=== PATIENT | female | born 1995 | race Caucasian/White ===

== ENCOUNTER 2021-04-22 21:00 | Inpatient (IN) | payer OTHER ==
[2021-04-22] MEDS ORDERED: LIDOCAINE 1% MPF 30 ML VIAL ONE (22:15)
[2021-04-22] MEDS ORDERED: OXYTOCIN/LR 20 UNIT/1,000 ML BAG IV ONE (22:16)
[2021-04-22] MEDS ORDERED: METHYLERGONOVINE 0.2MG/ML AMP IM ONE (22:16)
[2021-04-22] MEDS ORDERED: CARBOPROST TROME 250 MCG/ML IM ONE (22:16)
[2021-04-22] MEDS ORDERED: Oxycodone HCl/Acetaminophen 1 TAB TAB PO PRN (22:31)
[2021-04-22] MEDS ORDERED: DOCUSATE NA/SENNA CONC 1 TAB PO PRN (22:31)
[2021-04-22] MEDS ORDERED: IBUPROFEN 200 MG TAB PO PRN (22:31)
[2021-04-22] MEDS ORDERED: BISACODYL 10 MG RECTAL SUPP PR PRN (22:31)
[2021-04-22] MEDS ORDERED: ACETAMINOPHEN 500 MG TAB PO PRN (22:31)
[2021-04-22] MEDS ORDERED: DIPHENHYDRAMINE 25 MG TAB/CAP PO PRN (22:31)
[2021-04-22] MEDS ORDERED: PENICILLIN 5 MU in NA CHLORIDE 0.9% 100 ML IV ONE (22:59)
[2021-04-22] MEDS ORDERED: Ringers Lactate 1,000 ML IV PRN (22:59)
[2021-04-22] MEDS ORDERED: Ringers Lactate 1,000 ML IV SCH (23:00)
[2021-04-22] MEDS ORDERED: OXYTOCIN/LR 20 UNIT/1,000 ML BAG IV SCH ×2 (23:00→23:45)
[2021-04-22 23:32] VITALS: BMI 25.8
[2021-04-23 00:21] LABS: Absolute Lymphocytes (CBC) 2.8 K/uL (0.7-4.9); Basophils % 0.3 % (0-1.3); Hematocrit 32.5 % (36.0-45.0); Lymphocytes % 28.7 % (15.3-44.8); MPV 11.1 fL (7.6-11.3); RBC Red Blood Cell Count 3.98 M/uL (3.86-4.86)
--- NOTE | 2021-04-23 03:06 | DN ---
Surgeon: Troy Saab MD Caitlin Guzman is a 26-year-old, 2, para 1, at 38 weeks 1 day, followed antepartum in [facility], without complications. Rh negative. Received RhoGAM during the . Otherwise, no other problems reported. Moved to this area, said she would deliver in this area. Came in tonight in active rapidly advancing labor, received no analgesics, went from 3 to 6 in less than half an hour and then from 6 to complete in about 15 to 20 minutes. Second stage of about 10 minutes. Spontaneo us vaginal delivery of 6 pounds 9 ounces female. Apgars 9 and 9. No episiotomy. Very small first-d egree laceration, requiring 4 running locked stitches of 2-0 chromic under local infiltration. Schul tze delivery of the placenta was inspected and noted to be intact and normal. Less than 100 cc blood loss. The patient tolerated all procedures well. Final Diagnosis: Term intrauterine , 38 weeks 1 day, spontaneous labor, vaginal delivery. VINAYAK/MARIAN Voice ID: [id number] Report ID: [id number]
--- NOTE | 2021-04-23 03:12 | PREOPHP ---
Date of Admission: 04/22/2021 History: 26-year-old, 2, para 1, 38 weeks 1 day, followed antepartum in [facility], without problems, transferred to this area. Came in at 38 weeks and 1 day, in active labor. Family History: Noncontributory. Past Medical History: She is Rh negative, had RhoGAM during this . Strep test was unknown. The patient was offered penicillin and 5 million units was hung, but baby delivered within about 10 t o 15 minutes after the penicillin was started. Pediatrics notified. Allergies: NO ALLERGIES. Past Surgical History: No previous surgeries. Social History: Denies drug use. Admits that she was not taking her vitamins during the part of the . Laboratory Data: Laboratory values are pending at this point. Review of Systems: Noncontributory. Physical Examination: HEENT: Clear. Pupils equal, round, reactive to light and accommodation. Conjunctivae well perfused. No oral, lingual, or buccal lesions. Chest and Lung: Clear. Heart: Without murmurs, thrills, heaves, or rubs. Breasts: Not examined. Abdomen: Term size without any problems. Extremities: Clear without edema, cyanosis, or clubbing. Assessment And Plan: Essentially healthy female. Uncomplicated 38 weeks 1 day, spontaneou s, rapidly advancing labor. VINAYAK/MARIAN Voice ID: [id number]
[2021-04-23] MEDS: Oxycodone HCl/Acetaminophen 1 TAB TAB PO PRN ×2 (03:41→21:51)
[2021-04-23] MEDS ORDERED: Tdap (Diph,Pertuss(Acell),Tet Vac) 0.5 ML SYR IMVAC ONE (18:35)
[2021-04-23 22:00] LABS: RPR (Rapid Plasma Reagin) NON-REACT (NON-REACT)
[2021-04-24 06:53] VITALS: BP 125/81; TEMP 96.8
--- NOTE | 2021-04-26 13:04 | DS ---
Date of Discharge: 04/24/2021 History: A 26-year-old 2, para 1, followed antepartum in [place] without problems or com plications, came to our facility at 38 weeks 1 day, delivered rapidly of a 6 pounds 9 ounces female. Apgars 9 and 9. Local infiltration for repair of very small first-degree laceration requiring 3-4 s titches of 2-0 chromic. Schultze delivery of the placenta, which was inspected and noted to be intac t and less than 100 cc blood loss. The patient is Rh negative. She has received RhoGAM during pregn eve. Baby is also Rh negative, so she will not need RhoGAM. We have given penicillin prophylaxis a s her strep status was unknown, but the baby delivered much quicker than 1 hour after the penicillin was started. , she is afebrile, ambulating, voiding. Lochia is normal. She will be dismi ssed whenever the intramural director lets the baby go home. She is to call my office and make an appointme nt to come see me in 6 weeks for followup to report any temperature elevation of 100 degrees or great er, severe pain, heavy bleeding, or any other type of abnormalities. Requests no analgesics on dismi ssal. Flu shot, Tdap shot, and COVID immunizations discussed and encouraged. Final Diagnoses: Term intrauterine at 38 weeks 1 day, vaginal delivery. Immunizations off ered. Rh negative. Baby Rh negative as well. VINAYAK/MARIAN Voice ID: [id number] Report ID: [id number]
[2021-04-27 12:41] LABS: HBsAG Nonreactive (Nonreactive)
== END 2021-04-24 07:40 | disposition home or self-care (01) | DRG 807 ==
LOC: L&D 21:00 → 2ND-WC 21:45
PROVIDERS: ADMIT Specialist; ATTEND Specialist
PROC: 10E0XZZ Delivery of Products of Conception, External Approach (ICD-10-PCS; principal; 2021-04-22)
PROC: 10907ZC Drainage of Amniotic Fluid, Therapeutic from Products of Conception, Via Natural or Artificial Opening (ICD-10-PCS; 2021-04-22)
PROC: 0HQ9XZZ Repair Perineum Skin, External Approach (ICD-10-PCS; 2021-04-22)
DX: O70.0 First degree perineal laceration during delivery (principal); Z37.0 Single live birth; O26.893 Other specified pregnancy related conditions, third trimester; Z3A.38 38 weeks gestation of pregnancy; Z23 Encounter for immunization; Z67.91 Unspecified blood type, Rh negative; Z20.822 Contact with and (suspected) exposure to COVID-19
CPT/HCPCS: 36415; 85025; 85461; 86592; 86593; 86850; 86870; 86901; 87340; 90471; 90715; J2210; J2540; J2590; U0003

== ENCOUNTER 2021-05-17 18:39 | Inpatient (IN) | payer OTHER ==
[2021-05-17 20:00] LABS: Urine Blood 2+ (Negative); Urine Glucose Negative (Negative); Urine Protein 2+ (Negative); Urine Specific Gravity 1.025 (1.005-1.030); Urine pH 5.5 (5.0-7.0)
[2021-05-17 20:24] LABS: Urine Specific Gravity/Preg 1.025 (1.005-1.030)
[2021-05-17] MEDS ORDERED: NA CHLORIDE 0.9% 1,000 ML ONE (22:09)
[2021-05-17] MEDS ORDERED: CEFTRIAXONE 1000 MG/VIAL ONE (22:09)
[2021-05-17 22:19] LABS: Absolute Lymphocytes (CBC) 0.9 K/uL (0.7-4.9); Basophils % 0.3 % (0-1.3); Hematocrit 41.1 % (36.0-45.0); Lymphocytes % 6.7 % (15.3-44.8); MPV 10.9 fL (7.6-11.3); RBC Red Blood Cell Count 4.83 M/uL (3.86-4.86)
[2021-05-17 22:22] LABS: Potassium 3.2 mmol/L (3.5-5.1)
[2021-05-17 23:38] LABS: Anisocytosis 1+; Blood Morphology Comment NOTED (NOT SEEN); Platelet Estimate ADEQ
--- NOTE | 2021-05-17 23:49 | EDPHYS ---
Physician Documentation [facility] Name: Caitlin Guzman Age: 26 yrs Sex: Female : 1995 Arrival Date: 05/17/2021 Time: 18:44 Bed 19 Private MD: ED Physician Robel Ibrahim HPI: 05/17 22:27 This 26 yrs old Female presents to ER via Ambulatory with complaints of Kidney Pain. jr8 22:27 Modifying factors: The symptoms are alleviated by nothing. the symptoms are aggravated jr8 by nothing. Severity of pain: At its worst the pain was moderate in the emergency department the pain is unchanged. The patient has not experienced similar symptoms in the past. The patient has not recently seen a physician. This is a 26-year-old female with no past medical history that started with urinary symptoms which has now progressed to right-sided flank pain and fever since yesterday.. 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 - Social history:: Smoking status: Patient denies any tobacco usage or history of. Patient/guardian denies using alcohol, street drugs. ROS: 22:27 Eyes: Negative for injury, pain, redness, and discharge, ENT: Negative for injury, jr8 pain, and discharge, Neck: Negative for injury, pain, and swelling, Cardiovascular: Negative for chest pain, palpitations, and edema, Respiratory: Negative for shortness of breath, cough, wheezing, and pleuritic chest pain, Abdomen/GI: Negative for abdominal pain, nausea, vomiting, diarrhea, and constipation, MS/Extremity: Negative for injury and deformity, Skin: Negative for injury, rash, and discoloration, Neuro: Negative for headache, weakness, numbness, tingling, and seizure. 22:27 Back: Positive for flank pain, on the right. 22:27 : Positive for urinary symptoms. Exam: 22:27 Constitutional: This is a well developed, well nourished patient who is awake, alert, jr8 and in no acute distress. Cardiovascular: Regular rate and rhythm with a normal S1 and S2. No gallops, murmurs, or rubs. Normal PMI, no JVD. No pulse deficits. Respiratory: Lungs have equal breath sounds bilaterally, clear to auscultation and percussion. No rales, rhonchi or wheezes noted. No increased work of breathing, no retractions or nasal flaring. Abdomen/GI: Soft, non-tender, with normal bowel sounds. No distension or tympany. No guarding or rebound. No evidence of tenderness throughout. Skin: Warm, dry with normal turgor. Normal color with no rashes, no lesions, and no evidence of cellulitis. MS/ Extremity: Pulses equal, no cyanosis. Neurovascular intact. Full, normal range of motion. Neuro: Awake and alert, GCS 15, oriented to person, place, time, and situation. Cranial nerves II-XII grossly intact. Motor strength 5/5 in all extremities. Sensory grossly intact. Cerebellar exam normal. Normal gait. 22:27 Back: pain, is absent, ROM is normal, normal spinal alignment noted, CVA tenderness, that is mild, is noted on the right. Vital Signs: 19:45 BP 112 / 70; Pulse 101; Resp 19; Temp 98.2(O); Pulse Ox 100% ; Weight 63.5 kg; Height 5 ld1 ft. 6 in. (167.64 cm); Pain 7/10; 21:49 BP 117 / 66; Pulse 86; Resp 13; Pulse Ox 99% on R/A; ds4 22:15 BP 100 / 64; Pulse 73; Resp 16 S; Pulse Ox 100% on R/A; bb 11/ 01:10 BP 121 / 81; Pulse 102; Resp 18 S; Temp 99.4(O); Pulse Ox 100% on R/A; bb 07:45 BP 113 / 64; Pulse 106; Resp 18; Pulse Ox 99% ; sl2 08:45 BP 119 / 65; Pulse 88; Resp 18; Temp 98.4; Pulse Ox 99% ; sl2 09:30 BP 104 / 46; Pulse 98; Resp 18; Temp 98.4; Pulse Ox 100% ; sl2 10:50 BP 98 / 62; Pulse 81; Resp 18; Temp 98.5; Pulse Ox 99% on R/A; sl2 05/17 19:45 Body Mass Index 22.60 (63.50 kg, 167.64 cm) ld1 MDM: 05/17 21:29 Patient medically screened. jr 23:47 Data reviewed: vital signs, nurses notes, lab test result(s), radiologic studies, CT jr8 scan. Data interpreted: Pulse oximetry: on room air is 100 %. Interpretation: normal. Counseling: I had a detailed discussion with the patient and/or guardian regarding: the historical points, exam findings, and any diagnostic results supporting the discharge/admit diagnosis, lab results, radiology results, the need for further work-up and treatment in the hospital. ED course: Dr. Chappell consulted and will see patient tomorrow. Admitted to Dr. Sullivan. 05/17 20:00 Order name: Urine Dipstick-Ancillary; Complete Time: 21:29 [facility] 05/17 20:01 Order name: Urine --Ancillary (enter results); Complete Time: 21:29 [facility] 05/17 20:02 Order name: Urine Culture [facility] 05/17 21:46 Order name: Basic Metabolic Panel [facility] 05/17 21:46 Order name: CBC with Diff [facility] 05/17 21:47 Order name: Basic Metabolic Panel; Complete Time: 22:29 [facility] 05/17 21:47 Order name: CBC with Automated Diff; Complete Time: 23:39 [facility] 05/17 22:30 Order name: Manual Differential; Complete Time: 23:39 [facility] 05/17 23:39 Order name: Blood Culture Adult (2) [facility] 05/17 23:40 Order name: Blood Culture [facility] 05/18 00:08 Order name: COVID-19 SARS RT PCR (Document "Date of Onset" if Symptomatic); Complete [facility] Time: 01:46 05/18 01:46 Order name: CBC with Automated Diff; Complete Time: 01:46 [facility] 05/18 02:01 Order name: Comprehensive Metabolic Panel; Complete Time: 02:18 [facility] 05/18 02:44 Order name: Procalcitonin; Complete Time: 20:11 [facility] 05/17 21:46 Order name: IV Saline Lock; Complete Time: 21:46 [facility] 05/17 21:46 Order name: Labs collected and sent; Complete Time: 21:46 [facility] 05/17 21:46 Order name: CT Abd/Pelvis - IV Contrast Only; Complete Time: 20:11 jr8 05/18 09:41 Order name: Potassium; Complete Time: 20:11 EDMS Administered Medications: 22:15 Drug: NS 0.9% 1000 ml Route: IV; Rate: 1000 ml; Site: right antecubital; bb 23:15 Follow up: IV Status: Completed infusion; IV Intake: 1000ml bb 22:15 Drug: Rocephin (cefTRIAXone) 1 grams Route: IV; Rate: calculated rate; Site: right bb antecubital; 22:20 Follow up: IV Status: Completed infusion; IV Intake: 10ml 05/18 00:34 Drug: Potassium Chloride 40 mEq Route: PO; bb 01:11 Follow up: Response: No adverse reaction bb 02:04 Drug: morphine 2 mg Route: IVP; Site: right antecubital; bb Disposition: 05/19 09:19 Co-signature as Attending Physician, Robel Ibrahim MD I agree with the assessment and alison plan of care. Disposition Summary: 05/17/21 23:48 Hospitalization Ordered Hospitalization Status: Inpatient Admission 8 Provider: John Sullivan Condition: Stable jr8 Problem: new jr8 Symptoms: have improved jr8 Bed/Room Type: Standard [facility] Location: Telemetry/MedSurg (Inpatient)(05/18/21 07:33) Room Assignment: [facility](05/18/21 07:33) Diagnosis - Hydronephrosis with renal and ureteral calculous obstruction jr8 - Tubulo-interstitial nephritis, not specified as acute or chronic jr8 Forms: - Medication Reconciliation Form jr8 - SBAR form jr8 Signatures: Dispatcher [employer] EDMS Abril Zuleta Martha, RN RN mw Anderson, Corey, MD MD cha Ballard, Brenda, RN RN bb Roszak, Josh, PA PA [facility] Florina Vasquez RN RN ld1 Corrections: (The following items were deleted from the chart) 05/18 00:03 05/17 23:48 Telemetry/MedSurg (Inpatient) [facility] 05/18 00:03 05/17 23:48 [facility] 05/18 07:33 00:03 [facility] ER HOLD [facility] 07:33 00:03 ERHOLD- mw bd
--- NOTE | 2021-05-17 23:49 | ER ---
Nurse's Notes [facility] Name: Caitlin Guzman Age: 26 yrs Sex: Female : 1995 Arrival Date: 05/17/2021 Time: 18:44 Bed 19 Private MD: Diagnosis: Hydronephrosis with renal and ureteral calculous obstruction;Tubulo-interstitial nephritis, not specified as acute or chronic Presentation: 05/17 19:45 Chief complaint: Patient states: Right sided flank pain X 2 days. Last night I began ld1 running a 100 fever, today it was 103. I am getting uncontrollable chills, and vomiting. Coronavirus screen: Client presents with at least one sign or symptom that may indicate coronavirus-19. Standard/surgical mask placed on the client. Ebola Screen: No symptoms or risks identified at this time. Initial Sepsis Screen: Does the patient meet any 2 criteria? No. Patient's initial sepsis screen is negative. Does the patient have a suspected source of infection? No. Patient's initial sepsis screen is negative. Risk Assessment: Do you want to hurt yourself or someone else? Patient reports no desire to harm self or others. Onset of symptoms was May 17, 2021 at 19:47. 19:45 Method Of Arrival: Ambulatory ld1 19:45 Acuity: LUC 3 ld1 Triage Assessment: 19:47 General: Appears in no apparent distress. comfortable, Behavior is calm, cooperative, ld1 appropriate for age. Pain: Complains of pain in right low back Pain does not radiate. Pain currently is 8 out of 10 on a pain scale. Quality of pain is described as sharp, shooting, Pain began suddenly, Is continuous. EENT: No signs and/or symptoms were reported regarding the EENT system. Neuro: Level of Consciousness is awake, alert, obeys commands, Oriented to person, place, time, situation, Appropriate for age. Cardiovascular: Capillary refill < 3 seconds Patient's skin is warm and dry. Respiratory: Airway is patent Respiratory effort is even, unlabored, Respiratory pattern is regular, symmetrical. GI: Abdomen is flat, non-distended. : No signs and/or symptoms were reported regarding the genitourinary system. Derm: No signs and/or symptoms reported regarding the dermatologic system. Musculoskeletal: Reports pain in right low back. 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 - Social history:: Smoking status: Patient denies any tobacco usage or history of. Patient/guardian denies using alcohol, street drugs. Screenin:15 Abuse screen: Denies threats or abuse. Nutritional screening: No deficits noted. bb Tuberculosis screening: No symptoms or risk factors identified. Fall Risk None identified. Assessment: 22:32 General: Appears in no apparent distress. slender, Behavior is calm, cooperative. Pain: bb Complains of pain in right low back. Neuro: Level of Consciousness is awake, alert, obeys commands, Oriented to person, place, time, situation. Cardiovascular: Capillary refill < 3 seconds Patient's skin is warm and dry. Respiratory: Airway is patent Respiratory effort is even, unlabored, Respiratory pattern is regular. GI: Abdomen is non-distended. Derm: Skin is pink, warm \T\ dry. Musculoskeletal: Circulation, motion, and sensation intact. Reports pain in right low back. 23:30 Reassessment: Patient is alert, oriented x 3, equal unlabored respirations, skin bb warm/dry/pink. awaiting diagnostic results. 05/18 01:00 Reassessment: Using cell phone; voices no complaints. cc4 02:04 Reassessment: Patient appears in no apparent distress at this time. Pain: Complains of cc4 pain in right flank Pain currently is 8 out of 10 on a pain scale. Quality of pain is described as sharp, Morphine 2 mg given slow IVP; IV NS patent infusing right AC \T\ 150ml/hr/pump with no s/sx's of infiltration noted. Vital Signs: 05/17 19:45 BP 112 / 70; Pulse 101; Resp 19; Temp 98.2(O); Pulse Ox 100% ; Weight 63.5 kg; Height 5 ld1 ft. 6 in. (167.64 cm); Pain 7/10; 21:49 BP 117 / 66; Pulse 86; Resp 13; Pulse Ox 99% on R/A; ds4 22:15 BP 100 / 64; Pulse 73; Resp 16 S; Pulse Ox 100% on R/A; bb 05/18 01:10 BP 121 / 81; Pulse 102; Resp 18 S; Temp 99.4(O); Pulse Ox 100% on R/A; bb 07:45 BP 113 / 64; Pulse 106; Resp 18; Pulse Ox 99% ; sl2 08:45 BP 119 / 65; Pulse 88; Resp 18; Temp 98.4; Pulse Ox 99% ; sl2 09:30 BP 104 / 46; Pulse 98; Resp 18; Temp 98.4; Pulse Ox 100% ; sl2 10:50 BP 98 / 62; Pulse 81; Resp 18; Temp 98.5; Pulse Ox 99% on R/A; sl2 05/17 19:45 Body Mass Index 22.60 (63.50 kg, 167.64 cm) ld1 ED Course: 05/17 18:44 Patient arrived in ED. ds1 19:47 Triage completed. ld1 19:47 Arm band placed on right wrist. ld1 21:29 Jona Whitney PA is PHCP. jr8 21:29 Robel Ibrahim MD is Attending Physician. jr8 21:46 Inserted saline lock: 20 gauge in right antecubital area, using aseptic technique. ds4 Blood collected. 22:15 Patient has correct armband on for positive identification. Bed in low position. Call bb light in reach. 22:29 Samia Gaytan, YARELI is Primary Nurse. bb 22:43 CT Abd/Pelvis - IV Contrast Only In Process Unspecified. EDMS 23:47 John Sullivan DO is Hospitalizing Provider. jr8 05/18 00:35 CBC with Diff Sent. bb 00:35 Basic Metabolic Panel Sent. bb 01:11 No provider procedures requiring assistance completed. Patient admitted, IV remains in bb place. 06:54 Blood Culture Adult (2) Sent. cc4 Administered Medications: 05/17 22:15 Drug: NS 0.9% 1000 ml Route: IV; Rate: 1000 ml; Site: right antecubital; bb 23:15 Follow up: IV Status: Completed infusion; IV Intake: 1000ml bb 22:15 Drug: Rocephin (cefTRIAXone) 1 grams Route: IV; Rate: calculated rate; Site: right bb antecubital; 22:20 Follow up: IV Status: Completed infusion; IV Intake: 10ml bb 05/18 00:34 Drug: Potassium Chloride 40 mEq Route: PO; bb 01:11 Follow up: Response: No adverse reaction bb 02:04 Drug: morphine 2 mg Route: IVP; Site: right antecubital; bb Intake: 05/17 22:20 IV: 10ml; Total: 10ml. bb 23:15 IV: 1000ml; Total: 1010ml. bb Outcome: 23:48 Decision to Hospitalize by Provider. jr8 05/18 01:11 Admitted to Med/surg room ED Hold 19, Report called to Theresa DOWNS bb Condition: stable Instructed on the need for admit. 01:12 Admitted to ER Hold. [facility]. bb 11:20 Patient left the ED. sl2 Signatures: [facility] Suzy Stevens ds1 Samia Gaytan RN RN bb Jnoa Whitney PA PA jr8 Hubert Fuentes ds4 Florina Vasquez RN RN ld1 Theresa Manuel, RN RN cc4 Carine Goodwin RN RN sl2 Corrections: (The following items were deleted from the chart) 05/17 19:49 19:45 Resp 19bpm; 63.5 kg; Height 5 ft. 6 in.; BMI: 22.6; Pain 7/10; ld1 ld1
[2021-05-18] MEDS ORDERED: POTASSIUM CL SA 10 MEQ TAB PO ONE ×3 (00:18→07:48)
--- NOTE | 2021-05-18 00:36 | P.HP ---
Certification for Inpatient Patient admitted to: Inpatient With expected LOS: >2 Midnights Patient will require the following post-hospital care: None Practitioner: I am a practitioner with admitting privileges, knowledge of patient current condition, hospital course, and medical plan of care. Services: Services provided to patient in accordance with Admission requirements found in Title 42 Section 412.3 of the Code of Federal Regulations Patient History Date of Service: 05/18/21 Primary Care Provider: None Reason for admission: Pyelonephritis, ureteral calculus History of Present Illness: 26-year-old otherwise healthy female came to the emergency department with right flank pain and fever. Patient reports that pain began on Monday, noted fever yesterday. Patient was evaluated in the emergency department labs were significant for white blood cell count 12.9 with left shift and significant bandemia potassium 3.2 GFR 81 urine grossly positive for UTI CT abdomen pelvis with IV contrast demonstrated bilateral nephrolithiasis with a mildly obstructing 3 mm distal right ureteral calculus with possibility of pyelonephritis in the right kidney. Case was discussed with urology by ED provider who will consult for admission. Patient given IV Rocephin. Patient is breast-feeding. Allergies No Known Allergies Allergy (Verified 04/19/21 14:09) Home Medications: NK [No Home Meds] 04/19/21 - Past Medical/Surgical History -: None -: None Psychosocial/ Personal History: Patient lives at home with her family - Family History Family History: Reviewed- Non-Contributory - Social History Smoking Status: Never smoker Alcohol use: No CD- Drugs: No Caffeine use: No Place of Residence: Home Review of Systems 10-point ROS is otherwise unremarkable General: Fever, Chills, Weakness, Malaise Gastrointestinal: Other (Flank/back pain) Genitourinary: Dysuria Physical Examination - Physical Exam General: Alert, In no apparent distress, Oriented x3 HEENT: Atraumatic, PERRLA, Mucous membr. moist/pink, EOMI, Sclerae nonicteric Neck: Supple, 2+ carotid pulse no bruit, No LAD, Without JVD or thyroid abnormality Respiratory: Clear to auscultation bilaterally, Normal air movement Cardiovascular: Regular rate/rhythm, Normal S1 S2 Gastrointestinal: Normal bowel sounds, No tenderness Musculoskeletal: No tenderness Integumentary: No rashes Neurological: Normal gait, Normal speech, Normal strength at 5/5 x4 extr, Normal tone, Normal affect Lymphatics: No axilla or inguinal lymphadenopathy Urinary: Other (Right flank tenderness/CVA tenderness) - Studies Laboratory Data (last 24 hrs) 05/17/21 21:44: WBC 12.90 H, Hgb 12.8, Hct 41.1, Plt Count 254 05/17/21 21:44: Sodium 141, Potassium 3.2 L, BUN 13, Creatinine 0.84, Glucose 95 Assessment and Plan - Plan Assessment: UTI, right-sided pyelonephritis with partial obstructing 3 mm distal right ureteral calculus Breast-feeding Plan: UTI, right-sided pyelonephritis with partial obstructing 3 mm distal right ureteral calculus: Continue with IV fluids, IV antibiotics, urology consulted, n.p.o. at this time in case of need for surgical intervention in the morning. As needed pain medications. Breast-feeding: Patient is breast-feeding instructed to pump and dump for the time being. DVT PPX: SCDs Code status: Full code Discharge Plan: Home Plan to discharge in: 48 Hours - Advance Directives Does patient have a Living Will: No Does patient have a Durable POA for Healthcare: No - Code Status/Comfort Care Code Status Assessed: Yes (FC) Critical Care: No Time Spent Managing Pts Care (In Minutes): 55
[2021-05-18] MEDS ORDERED: ACETAMINOPHEN 500 MG TAB PO PRN (01:13)
[2021-05-18] MEDS: NA CHLORIDE 0.9% 1,000 ML IV SCH ×4 (01:13→20:19)
[2021-05-18] MEDS ORDERED: MORPHINE 2 MG/ML SYR IV PRN (01:13)
[2021-05-18] MEDS ORDERED: ONDANSETRON 4 MG/2 ML VIAL IV PRN (01:13)
[2021-05-18] MEDS ORDERED: NA CHLORIDE 0.9% 1,000 ML ONE ×2 (01:33→09:40)
[2021-05-18] MEDS ORDERED: ONDANSETRON 4 MG/2 ML VIAL ONE ×2 (01:33→12:16)
[2021-05-18 01:44] LABS: Absolute Lymphocytes (CBC) 1.2 K/uL (0.7-4.9); Basophils % 0.2 % (0-1.3); Hematocrit 42.3 % (36.0-45.0); Lymphocytes % 10.7 % (15.3-44.8); RBC Red Blood Cell Count 4.97 M/uL (3.86-4.86)
[2021-05-18] MEDS ORDERED: MORPHINE 2 MG/ML SYR ONE (02:00)
[2021-05-18 02:01] LABS: Albumin 3.3 g/dL (3.4-5.0); Bilirubin Total 0.9 mg/dL (0.2-1.0); Potassium 3.2 mmol/L (3.5-5.1); Protein, Total 7.8 g/dL (6.4-8.2)
--- NOTE | 2021-05-18 06:06 | P.PN ---
Subjective Date of Service: 05/18/21 Primary Care Provider: None Chief Complaint: Pyelonephritis, ureteral calculus Subjective: Improving, Other (Right flank pain improved.) Physical Examination - Vital Signs Temperature: 99.6 F Blood Pressure: 108/59 Pulse: 108 Respirations: 18 Pulse Ox (%): 98 - Studies Laboratory Data (last 24 hrs) 05/17/21 21:44: WBC 12.90 H, Hgb 12.8, Hct 41.1, Plt Count 254 05/17/21 21:44: Sodium 141, Potassium 3.2 L, BUN 13, Creatinine 0.84, Glucose 95 Assessment & Plan Discharge Plan: Home Plan to discharge in: 48 Hours Physician Review Additional Text: COVID: negative CT scan: Bilateral nephrolithiasis with mildly obstructing distal 3 mm right renal calculus and pyelonephritis Physical exam: General: Alert, In no apparent distress, Oriented x3 HEENT: Neck supple Respiratory: Clear to auscultation bilaterally, Normal air movement Cardiovascular: Regular rate/rhythm, Normal S1 S2 Gastrointestinal: Normal bowel sounds, tenderness to the right flank improved. Musculoskeletal: No tenderness Integumentary: No rashes Neurological: Normal gait, Normal speech, Normal strength at 5/5 x4 extr, Normal tone, Normal affect Lymphatics: No axilla or inguinal lymphadenopathy Impression: Acute right pyelonephritis with partial obstructing 3 mm distal right ureteral calculus and bilateral nephrolithiasis Breast-feeding Plan: Acute right pyelonephritis with partial obstructing 3 mm distal right ureteral calculus and bilateral nephrolithiasis: Patient doing better this morning. Continue IV fluids and IV antibiotic therapyRocephin. Patient currently n.p.o. for possible urological intervention. Urology has been consulted. Await recommendation. If no intervention required will advance diet. Will provide medication for pain. Encourage ambulation. Provide incentive spirometer. Anticipate improvement over the next 48 hours.. Breast-feeding: Patient is about 4 weeks post . Patient will continue to breast-feed and dump during the course of her stay. DVT PPX: SCDs Code status: Full code Discharge Plan: Home at discharge Time Spent Managing Pts Care (In Minutes): 55
[2021-05-18] MEDS ORDERED: TRAMADOL HCL 50 MG TAB PO PRN (06:37)
[2021-05-18] MEDS ORDERED: IBUPROFEN 400 MG TAB PO PRN (06:37)
[2021-05-18] MEDS ORDERED: HYDROCODONE/APAP 7.5/325 MG TAB PO PRN (06:38)
[2021-05-18] MEDS ORDERED: HYDROCODONE/APAP 7.5/325 MG TAB ONE (07:21)
[2021-05-18 07:27] VITALS: BMI 22.4
[2021-05-18] MEDS ORDERED: CEFTRIAXONE 1000 MG/VIAL ONE (08:08)
[2021-05-18] MEDS: CEFTRIAXONE 1,000 MG in NA CHLORIDE 0.9% 50 ML IVPB SCH (08:20)
--- NOTE | 2021-05-18 10:42 | RAD REPORT ---
EXAM DESCRIPTION: CT - Abdomen Pelvis W Contrast - 05/18/2021 6:15 am CLINICAL HISTORY: Flank pain;Fever COMPARISON: None. 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 FINDINGS: Lower lungs are clear. Abdomen: The liver is normal in appearance. There is no biliary dilatation. Gallbladder is normal in appearance. The pancreas and spleen are normal in appearance. There is a punctate lower pole left silvia al calculus without hydronephrosis. Right kidney contains at least five calculi measuring up to 2 mm. There is patchy enhancement of mostly the lower pole of the right kidney. There is mild right hydron ephrosis with stranding surrounding the proximal right ureter. There is a 3 mm distal right ureteral calculus. Abdominal aorta is normal in course and caliber without aneurysm. There is no free air. There is no r etroperitoneal adenopathy. Pelvis: There is no bowel obstruction. Urinary bladder is unremarkable. There is small amount of free pelvic fluid. Uterus is normal in size. Appendix is normal. Skeleton: There are no acute osseous findings. No suspicious bony lesions. IMPRESSION: Bilateral nephrolithiasis with a mildly obstructing 3 mm distal right ureteral calculus. Difficult to exclude the possibility of pyelonephritis within the right kidney. Electronically signed by: Samm Skelton MD 05/17/2021 11:13 PM TERRITORY BUSINESS MANAGER Due to temporary technical issues with the PACS/Fluency reporting system, reports are being signed by the in house radiologists without review as a courtesy to insure prompt reporting. The interpreting radiologist is fully responsible for the content of the report.
[2021-05-18] MEDS ORDERED: FENTANYL CITR 100 MCG/2 ML ONE (12:14)
[2021-05-18] MEDS ORDERED: propofoL 200 MG/20 ML VIAL IV ONE (12:14)
[2021-05-18] MEDS ORDERED: MIDAZOLAM HCL 2 MG/2 ML INJ ONE (12:15)
[2021-05-18] MEDS ORDERED: KETOROLAC 30 MG/ML INJ ONE (12:15)
[2021-05-18] MEDS ORDERED: LIDOCAINE 1% MPF 5 ML VIAL ONE (12:15)
[2021-05-18] MEDS ORDERED: dexAMETHasone 10 MG/ML VIAL ONE (12:15)
--- NOTE | 2021-05-18 13:39 | RAD REPORT ---
EXAM DESCRIPTION: RAD - Urethrocystogrphy Retrograde - 05/18/2021 1:27 pm FINDINGS: A total of 7 portable KUB images were submitted from a fluoroscopic assisted placement of a right ureteral stent. No suspicious or unexpected findings. Fluoro time was 0.10 minutes.
[2021-05-18 13:57] VITALS: O2SAT 96
--- NOTE | 2021-05-18 23:49 | OP ---
Surgeon: MIS KO Preoperative Diagnoses: 1.Right ureterolithiasis. 2.Right hydronephrosis. 3.Obstructive pyelonephritis. Postoperative Diagnoses: 1.Right ureterolithiasis. 2.Right hydronephrosis. 3.Obstructive pyelonephritis. 4.Right renal ptosis. Procedures: 1.Cystoscopy. 2.Right retrograde pyelography. 3.Right ureteral stent placement. Indication For Procedure: Ms. Guzman is a 26-year-old, G2, P2, A0, vaginal deliveries with no signif icant past medical or surgical history who presented to the emergency department having had a fever t o 102 associated with right-sided flank radiating into the abdominal pain and a CT scan revealing the presence of a small distal ureteral calculus. Because she had signs of obstructive pyelonephritis w ith fever, she was recommended for urgent right ureteral stent placement and after admission for medi randolph management and IV antibiotics with ceftriaxone, she presents for operative management. Procedure In Detail: The patient was consented in the preoperative holding area before being transfe rred to the operative suite where general anesthesia was induced. She had already been given ceftria xone earlier in the day. Pneumoboots was provided for DVT prophylaxis. She was placed in the lithot uriel position, padded and secured to the table appropriately. Her genitalia were prepped using Hibicl ens and draped in standard fashion. The case was begun using a 22-Norwegian rigid cystoscope to ramana e the urethra and into the bladder with ease. The bladder was surveyed, and no papillary mucosal les ions, foreign bodies or stones were noted throughout. The ureteral orifices were orthotopic in locat ion. The right ureteral orifice was cannulated using the tip of the Sensor wire and a 5-Norwegian urete ral access catheter. A retrograde pyelogram was then performed. Right retrograde pyelography: Using a 70:30 mixture of Omnipaque and saline, contrast was injected via the 5-Norwegian ureteral access catheter and did propagate up an obstructed and dilated ureter that was mildly tortuous before surpa ssing a kinked proximal ureter at the UPJ with evidence of renal ptosis. Contrast did enter the yariel l pelvis and calices, which had evidence of mild pelvocaliectasis. As a result, I then passed a Sens or wire via the ureter and observed it coil within the pelvis of the kidney. I then passed a 6-Frenc h x 24 cm double-J right ureteral stent with a coil observed within the renal pelvis and 1 cystoscopi joby formed within the bladder. The bladder was then decompressed of fluid and urine and repeat flu oroscopic imagery revealed decompression of the renal pelvis. As a result, the patient was taken out of the lithotomy position, awakened from general anesthesia, transferred to a stretcher and then tra nsferred to the recovery room in good condition. Complications: None. Discharge Disposition: She will be managed with IV antimicrobial therapy pending results of urine an d blood cultures taken in the emergency department. Ultimately, after 14 days of therapy for the hollis lonephritis, she will be rescheduled for operative definitive management via ureteroscopy with laser lithotripsy. While a stone was visible within the putative kidney, a stone within the ureter was not distinctly visible. CARMELLA/MARIAN Voice ID: [id number] Report ID: [id number]
[2021-05-19] MEDS: NA CHLORIDE 0.9% 1,000 ML IV SCH (04:10)
[2021-05-19 04:13] LABS: Absolute Lymphocytes (CBC) 1.1 K/uL (0.7-4.9); Basophils % 0.2 % (0-1.3); Lymphocytes % 13.8 % (15.3-44.8); MPV 11.5 fL (7.6-11.3); RBC Red Blood Cell Count 3.87 M/uL (3.86-4.86)
[2021-05-19 04:33] LABS: ALT/SGPT 20 U/L (12-78); AST/SGOT 10 U/L (15-37); Albumin 2.2 g/dL (3.4-5.0); Alkaline Phosphatase 114 U/L (45-117); BUN Blood Urea Nitrogen 10 mg/dL (7-18); Bicarbonate 21 mmol/L (21-32); Bilirubin Total 0.3 mg/dL (0.2-1.0); Glucose Level 118 mg/dL (74-106); Potassium 3.9 mmol/L (3.5-5.1); Protein, Total 5.9 g/dL (6.4-8.2); Sodium Level 143 mmol/L (136-145)
--- NOTE | 2021-05-19 06:07 | P.PN ---
Subjective Date of Service: 05/19/21 Primary Care Provider: None Chief Complaint: Pyelonephritis, ureteral calculus Subjective: Improving, Doing well Physical Examination - Vital Signs Temperature: 97.2 F Blood Pressure: 122/76 Pulse: 42 Respirations: 18 Pulse Ox (%): 98 - Studies Microbiology Data (last 24 hrs): 05/18/21 00:41 Blood - Blood Anaerobic Blood Culture - Final 05/18/21 01:01 Blood - Blood Anaerobic Blood Culture - Final Assessment & Plan Discharge Plan: Home Plan to discharge in: 24 Hours Physician Review Additional Text: COVID: negative CT scan: Bilateral nephrolithiasis with mildly obstructing distal 3 mm right renal calculus and pyelonephritis Surgery 05/18/2021: Surgeon: Dr. Eugene Chappell Preoperative Diagnoses: 1. Right ureterolithiasis. 2. Right hydronephrosis. 3. Obstructive pyelonephritis. Postoperative Diagnoses: 1. Right ureterolithiasis. 2. Right hydronephrosis. 3. Obstructive pyelonephritis. 4. Right renal ptosis. Procedures: 1. Cystoscopy. 2. Right retrograde pyelography. 3. Right ureteral stent placement. Physical exam: General: Alert, In no apparent distress, Oriented x3 HEENT: Neck supple Respiratory: Clear to auscultation bilaterally, Normal air movement Cardiovascular: sinus bradycardia Gastrointestinal: Normal bowel sounds, tenderness to the right flank improved. Musculoskeletal: No tenderness Integumentary: No rashes Neurological: Normal gait, Normal speech, Normal strength at 5/5 x4 extr, Normal tone, Normal affect Lymphatics: No axilla or inguinal lymphadenopathy Impression: Acute right pyelonephritis with partial obstructing 3 mm distal right ureteral calculus and bilateral nephrolithiasis cystoscopy, right retrograde pyelogram and right ureteral stent placement Breast-feeding Plan: Acute right pyelonephritis with partial obstructing 3 mm distal right ureteral calculus and bilateral nephrolithiasis cystoscopy, right retrograde pyelogram and right ureteral stent placement: Doing well at this time. T-max 100.2. DC IV fluids. Continue IV Rocephin. Encourage ambulation. Encourage incentive spirometer. Culture results will finalize tomorrow. Anticipate home tomorrow once culture results have finalized and appropriate antibiotic can be chosen. Plan of care discussed with urology. Patient will need close follow-up with urology as an outpatient and removal of stent in the future. I will turn the service over to the hospitalist team tomorrow. I will go plan of care with him. Breast-feeding: Patient is about 4 weeks post . Patient will continue to breast-feed and dump during the course of her stay. Sinus bradycardia: Patient is asymptomatic. Will monitor. Will obtain EKG. DVT PPX: SCDs Code status: Full code Discharge Plan: Home at discharge Time Spent Managing Pts Care (In Minutes): 55
[2021-05-19] MEDS ORDERED: POTASSIUM CL SA 10 MEQ TAB PO ONE (09:00)
[2021-05-19] MEDS ORDERED: CEFTRIAXONE 1000 MG/VIAL ONE (09:20)
[2021-05-19] MEDS ORDERED: NA CHLORIDE 0.9% 100 ML ONE (09:21)
[2021-05-19] MEDS: PRENATAL VITAMIN PO SCH (09:27)
[2021-05-19] MEDS: CEFTRIAXONE 1,000 MG in NA CHLORIDE 0.9% 50 ML IVPB SCH (09:27)
[2021-05-20 03:54] LABS: Absolute Lymphocytes (CBC) 2.2 K/uL (0.7-4.9); Basophils % 0.4 % (0-1.3); Hematocrit 35.1 % (36.0-45.0); Lymphocytes % 24.9 % (15.3-44.8); MPV 10.9 fL (7.6-11.3); RBC Red Blood Cell Count 4.15 M/uL (3.86-4.86)
[2021-05-20 04:02] LABS: ALT/SGPT 20 U/L (12-78); AST/SGOT 9 U/L (15-37); Albumin 2.4 g/dL (3.4-5.0); Alkaline Phosphatase 113 U/L (45-117); BUN Blood Urea Nitrogen 12 mg/dL (7-18); Bicarbonate 25 mmol/L (21-32); Bilirubin Total 0.4 mg/dL (0.2-1.0); Glucose Level 84 mg/dL (74-106); Potassium 3.8 mmol/L (3.5-5.1); Protein, Total 6.3 g/dL (6.4-8.2); Sodium Level 145 mmol/L (136-145)
[2021-05-20] MEDS ORDERED: POTASSIUM CL SA 10 MEQ TAB PO ONE (06:09)
[2021-05-20] MEDS ORDERED: CEFTRIAXONE 1000 MG/VIAL ONE (07:51)
[2021-05-20] MEDS ORDERED: NA CHLORIDE 0.9% 100 ML ONE (07:52)
[2021-05-20 08:19] VITALS: BP 121/69; TEMP 97.7
[2021-05-20] MEDS: CEFTRIAXONE 1,000 MG in NA CHLORIDE 0.9% 50 ML IVPB SCH (08:41)
[2021-05-20] MEDS: PRENATAL VITAMIN PO SCH (08:42)
--- NOTE | 2021-05-20 10:31 | P.DS ---
Admission Date: 05/18/21 Discharge Date: 05/20/21 Primary Care Provider: None Disposition: ROUTINE DISCHARGE Discharge Condition: GOOD Reason for Admission: Pyelonephritis, ureteral calculus Consultations: Urology Procedures: CT scan: Bilateral nephrolithiasis with mildly obstructing distal 3 mm right renal calculus and pyelonephritis Surgery 05/18/2021: Surgeon: Dr. Eugene Chappell Preoperative Diagnoses: 1. Right ureterolithiasis. 2. Right hydronephrosis. 3. Obstructive pyelonephritis. Postoperative Diagnoses: 1. Right ureterolithiasis. 2. Right hydronephrosis. 3. Obstructive pyelonephritis. 4. Right renal ptosis. Procedures: 1. Cystoscopy. 2. Right retrograde pyelography. 3. Right ureteral stent placement. - Problems (1) Pyelonephritis Current Visit: Yes Status: Acute (2) Calculi, ureter Current Visit: Yes Status: Acute Brief History of Present Illness: Acute right pyelonephritis with partial obstructing 3 mm distal right ureteral calculus and bilateral nephrolithiasis cystoscopy, right retrograde pyelogram and right ureteral stent placement Breast-feeding Hospital Course: Pt was admitted with Acute right pyelonephritis with partial obstructing 3 mm distal right ureteral calculus and bilateral nephrolithiasis cystoscopy, right retrograde pyelogram and right ureteral stent placement: she did well on IV Rocephin, urine cx was + for ecoli which was sensitive to cipro and pt DC on 10 days cipro 500 mg bid she have to avoid while on cipro . atient will need close follow-up with urology as an outpatient and removal of stent in the future. she will call tommorow to make an appt Breast-feeding: Patient is about 4 weeks post . she will hold off while on cipro Code status: Full code Physical exam: General: Alert, In no apparent distress, Oriented x3 HEENT: Neck supple Respiratory: Clear to auscultation bilaterally, Normal air movement Cardiovascular: sinus bradycardia Gastrointestinal: Normal bowel sounds, tenderness to the right flank improved. Musculoskeletal: No tenderness Integumentary: No rashes Neurological: Normal gait, Normal speech, Normal strength at 5/5 x4 extr, Normal tone, Normal affect Lymphatics: No axilla or inguinal lymphadenopathy Discharge Plan: Home at discharge follow up with urology Vital Signs/Physical Exam: Temp Pulse Resp BP Pulse Ox 97.7 F 55 16 121/69 99 11/25/21 08:00 05/20/21 08:00 05/20/21 08:00 05/20/21 08:00 05/20/21 08:00 Laboratory Data at Discharge: WBC 8.90 K/uL (4.3-10.9) 05/20/21 03:09 Hgb 11.1 g/dL (12.0-15.0) L 05/20/21 03:09 Hct 35.1 % (36.0-45.0) L 05/20/21 03:09 Plt Count 280 K/uL (152-406) D 05/20/21 03:09 Sodium 145 mmol/L (136-145) 05/20/21 03:00 Potassium 3.8 mmol/L (3.5-5.1) 05/20/21 03:00 BUN 12 mg/dL (7-18) 05/20/21 03:00 Creatinine 0.70 mg/dL (0.55-1.3) 05/20/21 03:00 Glucose 84 mg/dL (74-106) 05/20/21 03:00 Total Bilirubin 0.4 mg/dL (0.2-1.0) 05/20/21 03:00 AST 9 U/L (15-37) L 05/20/21 03:00 ALT 20 U/L (12-78) 05/20/21 03:00 Alkaline Phosphatase 113 U/L (45-117) 05/20/21 03:00 Home Medications: Ciprofloxacin HCl [Cipro 500 MG Tablet] 500 mg PO BID 10 Days #20 tab 05/20/21 New Medications: Ciprofloxacin HCl [Cipro 500 MG Tablet] 500 mg PO BID 10 Days #20 tab Diet: Regular Activity: Ad isaias Followup: Eugene Chappell [ACTIVE - CAN ADMIT] -
== END 2021-05-20 10:53 | disposition home or self-care (01) | DRG 769 ==
LOC: ER 18:39 → ERHOLD 05-18 00:36 → INTOOBSV 05-18 00:36 → OBSVTOIN 05-18 00:36 → 4TH 05-18 11:31
PROVIDERS: ADMIT Family Medicine; ATTEND Family Medicine
PROC: BT1DYZZ Fluoroscopy of Right Kidney, Ureter and Bladder using Other Contrast (ICD-10-PCS; 2021-05-18)
PROC: 0T768DZ Dilation of Right Ureter with Intraluminal Device, Via Natural or Artificial Opening Endoscopic (ICD-10-PCS; principal; 2021-05-18 12:45)
DX: O86.21 Infection of kidney following delivery (principal); N13.6 Pyonephrosis; O90.89 Other complications of the puerperium, not elsewhere classified; N28.83 Nephroptosis; Z20.822 Contact with and (suspected) exposure to COVID-19
CPT/HCPCS: 36415; 51610; 74177; 74450; 80048; 80053; 81003; 81025; 84132; 84145; 85025; 87040; 87077; 87086; 87088; 87186; 96361; 96374; 96375; 99285; G0378; J1100; J2250; J2270; J2405; J2704; J3010; J7030; Q9967; U0003

== ENCOUNTER 2021-06-22 06:16 | Day surgery (SDC) | payer OTHER ==
[2021-06-22 06:28] LABS: Specific Gravity 1.025 (1.005-1.030)
[2021-06-22] MEDS ORDERED: Ringers Lactate 1,000 ML IV ONE (06:44)
[2021-06-22] MEDS ORDERED: CEFAZOLIN/NS 1gm 1 GM/50 ML BAG ONE (06:44)
[2021-06-22 06:56] VITALS: O2SAT 100
[2021-06-22] MEDS ORDERED: GLYCOPYRROLATE 0.2 MG/ML SYR ONE (07:08)
[2021-06-22] MEDS ORDERED: FENTANYL CITR 100 MCG/2 ML ONE (07:08)
[2021-06-22] MEDS ORDERED: propofoL 200 MG/20 ML VIAL IV ONE (07:08)
[2021-06-22] MEDS ORDERED: ROCURONIUM 50 MG/5 ML VIAL IV ONE (07:08)
[2021-06-22] MEDS ORDERED: LIDOCAINE 2% MPF 5 ML VIAL ONE (07:08)
[2021-06-22] MEDS ORDERED: MIDAZOLAM HCL 2 MG/2 ML INJ ONE (07:08)
[2021-06-22] MEDS ORDERED: dexAMETHasone 10 MG/ML VIAL ONE (07:09)
[2021-06-22] MEDS ORDERED: ONDANSETRON 4 MG/2 ML VIAL ONE (07:09)
[2021-06-22] MEDS ORDERED: KETOROLAC 30 MG/ML INJ ONE (07:09)
[2021-06-22] MEDS ORDERED: PHENAZOPYRIDINE 100MG TAB PO ONE ×3 (07:31→09:40)
[2021-06-22] MEDS ORDERED: CODEINE 30MG/APAP 300MG TAB PO PRN (07:31)
[2021-06-22] MEDS ORDERED: EPHEDRINE SULF 50 MG/ML VIAL ONE (08:13)
--- NOTE | 2021-06-22 08:45 | RAD REPORT ---
EXAM DESCRIPTION: RAD - Urography Retrograde - 06/22/2021 8:33 am CLINICAL HISTORY: RT STENT COMPARISON: Urethrocystogrphy Retrograde dated 05/18/2021 FINDINGS: Total fluoro time: 1 minutes and 13 seconds
[2021-06-22 09:25] VITALS: BP 114/70; TEMP 97
--- NOTE | 2021-06-23 08:29 | OP ---
Surgeon: MIS KO Preoperative Diagnoses: 1.Right obstructive ureterolithiasis. 2.Right hydronephrosis. 3.Right renal ptosis. Postoperative Diagnoses: 1.Right obstructive ureterolithiasis. 2.Right hydronephrosis. 3.Right renal ptosis. Principle Procedure: Cysto right ureteroscopy with laser lithotripsy and right ureteral stent exchan ge. Indication For Procedure: Ms. Guzman is a 26-year-old woman who presented to the emergency [facility] originally with an obstructing right ureteral stone. She underwent emergent right ureteral stent p lacement and presents today for definitive management of her stone. Procedure In Detail: The patient presents to the preoperative holding area where general anesthesia was induced and Ancef was provided for antimicrobial prophylaxis. Pneumo boots were provided for DVT prophylaxis. She was placed in the lithotomy position, padded and secured to the table appropriatel y. The case was begun using a 22-Solomon Islander rigid cystoscope to traverse the urethra and into the bladde r with ease. The right ureteral stent was noted to emanate from the right ureteral orifice and was g rasped and delivered to the meatus. A Sensor wire was placed via the stent and did coil in the putat srinivasa renal pelvis. Leaving the wire in place, I then used the semi-rigid ureteroscope to perform dire ct vision ureteroscopic entry into the bladder and into the right ureter where in the distal ureter, I did encounter the previously observed 3 to 4 mm calculus. I initially attempted to basket this sto ne using a 2.2-Solomon Islander 0-tip Nitinol basket, but the stone was too large for the basket. As a result, I employed a 200 nm laser fiber and power settings of 0.8 joules and 8 Hz alternating with 0.3 joule s and 40 Hz to quickly fragment the stone to dust around the size of the laser fiber for the wire les s than 1 mm in thickness. I then navigated the semi-rigid ureteroscope into the proximal ureter wher e the ptosis noted was obstructing entry of the Sensor wire into the renal pelvis. Thus, under dire t vision, I attempted to navigate the Sensor wire more completely into the renal pelvis. I also inje cted contrast via the ureteroscope to opacify the proximal ureter and the renal pelvis, which did del ineate. Now with the wire in the renal pelvis appropriately, I placed a second Bentson guidewire rojelio ngside the wire into the renal pelvis and removed the semi-rigid ureteroscope. I then passed over th e Bentson guidewire, a flexible ureteroscope, which did enter the proximal ureter, but did not enter the renal pelvis. Using pressurized irrigation, I was able to then navigate the flexible ureteroscop e beyond the kinking at the ureteropelvic junction and enter the true renal pelvis. I was able to vi sualize the calices of the kidney, but I was unable to enter them due to tortuosity of the scope. As a result, I passed a Bentson guidewire via the scope into the upper pole calices this time and coile d it there. I was then able to remove the ureteroscope leaving the wire in place and backloaded the cystoscope over the indwelling safety wire. I then attempted to pass a 6-Solomon Islander x 26 cm ureteral greg nt, but given the length associated with the ptosis and tortuosity of the proximal ureter, the stent did not completely reach into the renal pelvis. As a result, I removed the 6-Solomon Islander x 26 cm double-J ureteral stent and passed a 6-Solomon Islander x 28 cm double-J ureteral stent in a young woman whose height w ould typically only merit something as small as a 6-Solomon Islander x 24 cm double-J stent. In the end, the s tent did coil appropriately within the renal pelvis as evident fluoroscopically and also in the bladd er. I then decompressed her bladder of fluid and urine, and she was taken out of the lithotomy posit ion. She was then awakened from general anesthesia, transferred to a stretcher, and then transferred to the recovery room in good condition. Complications: None. Discharge Disposition: She should follow up in the Urology Clinic with a pre-clinic KUB obtained to assess for persistence of the ptosis. If the drooping appearance is persistent despite a period of s tent decompression to allow the hydronephrosis to resolve, then we will simply address the ptosis bas ed on the patient's symptomatology if present. If not present, the stent may simply be removed and subsequent followup can be determine d expectantly. CARMELLA/BRAYANL Voice ID: [id number] Report ID: [id number]
== END 2021-06-22 09:58 | disposition home or self-care (01) ==
LOC: OR 06:16
PROVIDERS: ATTEND Urology
PROC: 0T768DZ Dilation of Right Ureter with Intraluminal Device, Via Natural or Artificial Opening Endoscopic (ICD-10-PCS; 2021-06-22)
PROC: 0TF68ZZ Fragmentation in Right Ureter, Via Natural or Artificial Opening Endoscopic (ICD-10-PCS; principal; 2021-06-22 07:30)
DX: N20.0 Calculus of kidney (principal); N13.2 Hydronephrosis with renal and ureteral calculous obstruction; N28.83 Nephroptosis; Z20.822 Contact with and (suspected) exposure to COVID-19
CPT/HCPCS: 87088; 87086; 81025; 74420; 52356; U0002; J2704; J2250; J3010; J1100; J0690; J7120; J2405

== ENCOUNTER 2021-08-08 08:33 | Emergency (ER) | payer OTHER ==
--- OUTSIDE RECORDS SUMMARY | 2021-08-08 08:38 | XMS REPORT | Continuity of Care Document ---
:1995 Author Organization [facility] t Address [address] [place] [address] Care Team Providers Name Role Phone Unavailable Unavailable Unavailable Problems This patient has no known problems. Allergies, Adverse Reactions, Alerts This patient has no known allergies or adverse reactions. Medications This patient has no known medications. Procedures This patient has no known procedures. Encounters Start End Encounter Admission Attending Care Care Encounter Source Date/Time Date/Time Type Type Clinicians Facility Department ID 2021-07-21 Outpatient [facility] [id number] [facility] 14:19:58 [id number] 2021-07-28 2021-07-28 ambulatory [facility] [id number] [facility] 2021-07-07 2021-07-07 ambulatory [facility] [id number] [facility] 2021-05-27 2021-05-27 ambulatory [facility] [id number] [facility] Results This patient has no known results.
[2021-08-08 10:18] LABS: SARS-COV-2 RT PCR NEGATIVE (NEGATIVE)
--- NOTE | 2021-08-08 11:08 | EDPHYS ---
Physician Documentation [facility] Name: Caitlin Guzman Age: 26 yrs Sex: Female : 1995 Arrival Date: 08/08/2021 Time: 08:37 Bed 12 Private MD: ED Physician Tyler Call HPI: 08/08 09:16 This 26 yrs old Female presents to ER via Ambulatory with complaints of Cough. jmm 09:16 The patient or guardian reports cough. Onset: The symptoms/episode began/occurred jmm gradually, 9 day(s) ago. Modifying factors: The symptoms are alleviated by nothing, the symptoms are aggravated by nothing. Associated signs and symptoms: Pertinent positives: right ear pain. It is unknown whether or not the patient has had similar symptoms in the past. This is a 26 year old female with a history of depression that presents to the ED with complaints of cough beginning approx 9 days ago with sinus congestion and right ear pain. Denies shortness of breath or sore throat. 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 - Social history:: Smoking status: Patient denies any tobacco usage or history of. ROS: 09:16 Constitutional: Negative for fever, chills, and weight loss, Cardiovascular: Negative jmm for chest pain, palpitations, and edema. 09:16 ENT: Positive for ear pain, sinus congestion. 09:16 Respiratory: Positive for cough. 09:16 All other systems are negative. Exam: 09:16 Constitutional: This is a well developed, well nourished patient who is awake, alert, jmm and in no acute distress. Head/Face: atraumatic. Eyes: EOMI, no conjunctival erythema appreciated 09:16 Neck: Trachea midline, Supple Chest/axilla: Normal chest wall appearance and motion. Cardiovascular: Regular rate and rhythm. No edema appreciated Respiratory: Normal respirations, no respiratory distress appreciated Abdomen/GI: Non distended, soft Back: Normal ROM Skin: General appearance color normal MS/ Extremity: Moves all extremities, no obvious deformities appreciated, no edema noted to the lower extremities Neuro: Awake and alert Psych: Behavior is normal, Mood is normal, Patient is cooperative and pleasant 09:16 ENT: TM's: erythema, that is mild, on the right, Posterior pharynx: Tonsils: enlarged on the left, with erythema, erythema, that is mild. Vital Signs: 08:50 BP 126 / 79; Pulse 74; Resp 17; Temp 97.8(O); Pulse Ox 100% on R/A; Weight 61.23 kg; jl7 Height 5 ft. 6 in. (167.64 cm); Pain 2/10; 08:50 Body Mass Index 21.79 (61.23 kg, 167.64 cm) jl7 MDM: 09:16 Patient medically screened. [facility] 11:07 Data reviewed: vital signs, nurses notes. Counseling: I had a detailed discussion with juancarlos the patient and/or guardian regarding: the historical points, exam findings, and any diagnostic results supporting the discharge/admit diagnosis, lab results, the need for outpatient follow up, to return to the emergency department if symptoms worsen or persist or if there are any questions or concerns that arise at home. ED course: Patient is alert and non toxic in appearance in the ED. No signs of resp distress. Patient advised to follow up with pcp and otherwise given strict return precautions. . 08/08 08:40 Order name: COVID-19/FLU A+B (Document "Date of Onset" if Symptomatic); Complete Time: [facility] 10:30 Administered Medications: No medications were administered Disposition: 19:27 Co-signature as Attending Physician, Tyler Call MD I agree with the assessment and kdr plan of care. Disposition Summary: 08/08/21 11:08 Discharge Ordered Location: Home [facility] Condition: Stable [facility] Diagnosis - Acute upper respiratory infection, unspecified jm - Acute serous otitis media, right ear portia Followup: [facility] - With: Private Physician - When: 2 - 3 days - Reason: Recheck today's complaints, Continuance of care, Re-evaluation by your physician Discharge Instructions: - Discharge Summary Sheet [facility] - Otitis Media, Adult jm - Upper Respiratory Infection, Adult [facility] Forms: - Medication Reconciliation Form jmm - Thank You Letter jmm - Antibiotic Education jmm - Prescription Opioid Use jmm - Work release form eb Prescriptions: - cefdinir 300 mg Oral capsule - take 1 capsule by ORAL route every 12 hours for 10 days; 20 capsule; Refills: jmm 0, Product Selection Permitted - Medrol (Kareem) 4 mg Oral Tablets, Dose Pack - take 1 tablet by ORAL route as directed - follow package instructions; 1 jmm packet; Refills: 0, Product Selection Permitted Signatures: Dispatcher [employer] Tyler Hoskins MD MD kdr Mickail, Joel, PA PA Umu Callejas, RN RN jl7
--- NOTE | 2021-08-08 11:08 | ER ---
Nurse's Notes [facility] Name: Caitlin Guzman Age: 26 yrs Sex: Female : 1995 Arrival Date: 08/08/2021 Time: 08:37 Bed 12 Private MD: Diagnosis: Acute upper respiratory infection, unspecified;Acute serous otitis media, right ear Presentation: 08/08 08:50 Chief complaint: Patient states: Cough, congestion, Right ear pain x 1 week, denies jl7 fever. Coronavirus screen: congestion, cough unrelated to allergies, Client presents with at least one sign or symptom that may indicate coronavirus-19. Standard/surgical mask placed on the client. Provider contacted for isolation considerations. Ebola Screen: No symptoms or risks identified at this time. Initial Sepsis Screen: Does the patient meet any 2 criteria? No. Patient's initial sepsis screen is negative. Does the patient have a suspected source of infection? No. Patient's initial sepsis screen is negative. Risk Assessment: Do you want to hurt yourself or someone else? Patient reports no desire to harm self or others. Onset of symptoms was August 01, 2021. 08:50 Method Of Arrival: Ambulatory jl7 08:50 Acuity: LUC 4 jl7 Triage Assessment: 08:52 General: Appears in no apparent distress. uncomfortable, Behavior is calm, cooperative, jl7 appropriate for age. Pain: Complains of pain in right ear Pain currently is 2 out of 10 on a pain scale. 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 - Social history:: Smoking status: Patient denies any tobacco usage or history of. Screenin:16 Abuse screen: Denies threats or abuse. Denies injuries from another. Nutritional ph screening: No deficits noted. Tuberculosis screening: No symptoms or risk factors identified. Fall Risk None identified. Assessment: 11:15 General: Appears in no apparent distress. comfortable, slender, well groomed, Behavior ph is calm, cooperative, appropriate for age. Pain: Complains of pain in right ear. Neuro: No deficits noted. Respiratory: Reports cough that is Airway is patent Respiratory effort is even, unlabored, Denies shortness of breath. GI: No signs and/or symptoms were reported involving the gastrointestinal system. EENT: Reports pain in right ear. Derm: Skin is intact, is healthy with good turgor, Skin is pink, warm \\T\\ dry. Vital Signs: 08:50 BP 126 / 79; Pulse 74; Resp 17; Temp 97.8(O); Pulse Ox 100% on R/A; Weight 61.23 kg; jl7 Height 5 ft. 6 in. (167.64 cm); Pain 2/10; 08:50 Body Mass Index 21.79 (61.23 kg, 167.64 cm) [facility] ED Course: 08:37 Patient arrived in ED. mr 08:39 [facility] 08:39 Tyler Call MD is Attending Physician. [facility] 08:52 Triage completed. [facility] 08:52 Arm band placed on right wrist. [facility] 09:01 COVID-19/FLU A+B (Document "Date of Onset" if Symptomatic) Sent. [facility] 09:22 Umu Viramontes RN is Primary Nurse. [facility] 11:16 No provider procedures requiring assistance completed. Patient did not have IV access ph during this emergency room visit. 11:21 Patient has correct armband on for positive identification. ph Administered Medications: No medications were administered Outcome: 11:08 Discharge ordered by . [facility] 11:21 Discharged to home ambulatory. ph 11:21 Condition: good 11:21 Discharge instructions given to patient, Instructed on discharge instructions, follow up and referral plans. medication usage, Demonstrated understanding of instructions, follow-up care, medications, Prescriptions given X 2. 11:22 Patient left the ED. ph Signatures: Kev Blair PA PA jmm Rivera, Mary mr BrownLuz, RN RN Uum Segal RN RN [facility] Alis-StagerHuyen RN RN alfaro
[2021-08-08 11:32] VITALS: BP 126/79; TEMP 97.8; O2SAT 100
== END 2021-08-08 11:22 | disposition home or self-care (01) ==
LOC: ER 08:33
DX: J06.9 Acute upper respiratory infection, unspecified (principal); H65.01 Acute serous otitis media, right ear; F32.A Depression, unspecified; Z20.822 Contact with and (suspected) exposure to COVID-19
CPT/HCPCS: 0240U; 99283

== ENCOUNTER 2021-08-15 08:37 | Emergency (ER) | payer OTHER ==
--- OUTSIDE RECORDS SUMMARY | 2021-08-15 08:40 | XMS REPORT | Continuity of Care Document ---
:1995 Author Organization [facility] t Address [address] [place] [address] Care Team Providers Name Role Phone Unavailable Unavailable Unavailable Problems This patient has no known problems. Allergies, Adverse Reactions, Alerts This patient has no known allergies or adverse reactions. Medications This patient has no known medications. Procedures This patient has no known procedures. Encounters Start End Encounter Admission Attending Care Care Encounter Source Date/Time Date/Time Type Type Clinicians Facility Department ID 2021-07-21 [facility] [id number] [facility] [address] 14:19:58 [id number] [facility] 2021-07-28 2021-07-28 [facility] [id number] [facility] 2021-07-07 2021-07-07 [facility] [id number] [facility] 2021-05-27 2021-05-27 [facility] [id number] [facility] Results This patient has no known results.
[2021-08-15 09:53] LABS: Albumin 4.4 g/dL (3.4-5.0); Bilirubin Direct 0.1 mg/dL (0-0.2); Bilirubin Total 0.6 mg/dL (0.2-1.0); Potassium 3.5 mmol/L (3.5-5.1); Protein, Total 8.9 g/dL (6.4-8.2)
[2021-08-15] MEDS ORDERED: NA CHLORIDE 0.9% 1,000 ML ONE (10:03)
[2021-08-15] MEDS ORDERED: DIPHENOX/ATROP SULF 1 TAB PO ONE (10:03)
[2021-08-15 10:13] LABS: Absolute Lymphocytes (CBC) 2.2 K/uL (0.7-4.9); Lymphocytes % 7.9 % (15.3-44.8); MPV 9.1 fL (7.6-11.3); RBC Red Blood Cell Count 5.37 M/uL (3.86-4.86)
[2021-08-15 10:40] LABS: Urine Blood Negative (Negative); Urine Glucose Negative (Negative); Urine Protein Negative (Negative); Urine pH 5.5 (5.0-7.0)
[2021-08-15 10:58] LABS: SARS-COV-2 RT PCR NEGATIVE (NEGATIVE)
[2021-08-15 11:03] LABS: Platelet Estimate INCR; Platelets, Giant NOTED
[2021-08-15 11:04] LABS: Blood Morphology Comment NOT SEEN (NOT SEEN)
[2021-08-15 11:08] LABS: Urine Bacteria <20 /HPF (<20); Urine RBC <5 /HPF (NONE SEEN)
--- NOTE | 2021-08-15 11:26 | RAD REPORT ---
EXAM DESCRIPTION: CT - Abdomen Pelvis W Contrast - 08/15/2021 10:46 am CLINICAL HISTORY: Abdominal pain COMPARISON: 2020 TECHNIQUE: Computed axial tomography of the abdomen pelvis was obtained. 100 cc Isovue-300 was admin istered intravenously. Oral contrast was not requested which limits evaluation of bowel. All CT scans are performed using dose optimization technique as appropriate and may include automated exposure control or mA/KV adjustment according to patient size. FINDINGS: The liver, spleen, pancreas, adrenal and kidneys appear unremarkable. There is no evidence of diverticulitis. Normal appendix. Fluid within nondilated large and small bowel. The wall of several loops of jejunum thickened. IMPRESSION: Thickening of the wall of several loops of jejunum may indicate inflammation
[2021-08-15] MEDS ORDERED: DICYCLOMINE HCL 20 MG/2 ML AMP IM ONE (11:41)
[2021-08-15] MEDS ORDERED: NA CHLORIDE 0.9% 500 ML ONE (12:33)
--- NOTE | 2021-08-15 13:15 | ER ---
Nurse's Notes [facility] Name: Caitlin Guzman Age: 26 yrs Sex: Female : 1995 Arrival Date: 08/15/2021 Time: 08:40 Bed 15 Private MD: Diagnosis: Infectious gastroenteritis and colitis, unspecified Presentation: 08/15 08:45 Chief complaint: Patient states: Nausea/ vomiting and diarrhea since 6 Am today. ke1 Abdominal pain 10/10 middle of abdomen down to belly button. Coronavirus screen: Vaccine status: Patient reports receiving the 2nd dose of the covid vaccine. Ebola Screen: No symptoms or risks identified at this time. Risk Assessment: Do you want to hurt yourself or someone else? Patient reports no desire to harm self or others. Onset of symptoms was August 15, 2021. 08:45 Method Of Arrival: [facility] ke1 08:45 Acuity: LUC 3 ke1 08:57 Initial Sepsis Screen: Does the patient meet any 2 criteria? No. Patient's initial [facility] sepsis screen is negative. Does the patient have a suspected source of infection? No. Patient's initial sepsis screen is negative. Triage Assessment: 08:54 General: Appears uncomfortable, Behavior is cooperative. Pain:. ke1 08:57 Pain: Complains of pain in umbilical area. ke1 Historical: - Allergies: 08:52 No Known Allergies; ke1 - PSHx: 08:53 kidney stone removal; ke1 - Immunization history:: Client reports receiving the 2nd dose of the Covid vaccine. - Social history:: Smoking status: Patient denies any tobacco usage or history of. - Family history:: not pertinent. - Hospitalizations: : No recent hospitalization is reported. Screenin:55 Abuse screen: Denies threats or abuse. Nutritional screening: No deficits noted. jh6 Tuberculosis screening: No symptoms or risk factors identified. Fall Risk Secondary diagnosis (15 points) impaired mobility, IV access (20 points). Gait- Weak (10 pts.). Assessment: 08:54 General: Appears uncomfortable, ill, well developed, well nourished, Behavior is jh6 cooperative. Pain: Complains of pain in epigastric area and umbilical area Pain currently is 8 out of 10 on a pain scale. Quality of pain is described as burning, crampy. GI: Abdomen is flat, non-distended, Pt is actively vomiting clear fluid, Bowel sounds present X 4 quads. hyperactive in suprapubic area, right upper quadrant, left upper quadrant, right lower quadrant and left lower quadrant Abd is soft Abdomen is tender to palpation in epigastric area Reports upper abdominal pain, cramping, diarrhea, epigastric pain, nausea, vomiting. 11:43 General: Appears comfortable, Behavior is calm, cooperative. Pain: Complains of pain in 6 epigastric area Pain currently is 4 out of 10 on a pain scale. Quality of pain is described as crampy, pt able to drink 8oz of water without vomiting. states that she is having mild abd cramping. 13:27 Reassessment: Patient and/or family updated on plan of care and expected duration. Pain 6 level reassessed. Patient is alert, oriented x 3, equal unlabored respirations, skin warm/dry/pink. no further vomiting noted. pt able to walk back and forth to bathroom without dizziness Patient denies pain at this time. Patient states feeling better. Patient states symptoms have improved. Pain: Denies pain. Vital Signs: 08:45 BP 115 / 68; Pulse 98; Resp 20; ke1 10:00 BP 127 / 76; Pulse 84; Resp 16; Pulse Ox 99% ; Pain 3/10; jh6 11:42 BP 109 / 56; Pulse 76; Resp 17; Pulse Ox 100% ; Pain 3/10; jh6 ED Course: 08:40 Patient arrived in ED. rn 08:40 David Rosales MD is Attending Physician. rn 08:45 Daniella Stevnes RN is Primary Nurse. 6 08:52 Triage completed. ke1 08:56 Maintain EMS IV. Dressing intact. Good blood return noted. Site clean \T\ dry. Gauge \T\ 6 site: 20g to rt ac. IV is intact, Flushed right antecubital. 08:57 Placed in gown. Bed in low position. Call light in reach. Side rails up X 1. Cardiac 6 monitor on. Pulse ox on. NIBP on. 10:00 Lab(s) recollected, by me, sent to lab. dh3 10:14 Notified ED physician of a critical lab result(s). WBC 28.0. ll1 10:[address] via wheelchair. jh6 10:46 CT Abd/Pelvis - IV Contrast Only In Process Unspecified. EDMS 11:38 Basic Metabolic Panel Sent. ww 11:39 Hepatic Function Sent. ww 11:39 Lipase Sent. ww 13:28 IV discontinued, intact, bleeding controlled, No redness/swelling at site. Pressure 6 dressing applied. Administered Medications: 10:04 Drug: NS 0.9% 1000 ml Route: IV; Rate: 1000 ml; Site: right antecubital; 6 11:01 Follow up: IV Status: Completed infusion 6 10:05 Drug: LoMOTIL (diphenoxylate-atropine) 2 tabs Route: PO; jh6 11:01 Follow up: Response: No adverse reaction jh6 11:42 Drug: Bentyl (dicyclomine) 20 mg Route: IM; Site: left gluteus; 6 12:34 Follow up: Response: No adverse reaction 6 12:33 Drug: NS 0.9% 500 ml Route: IV; Rate: bolus; Site: right antecubital; [facility] Outcome: 13:14 Discharge ordered by . rn 13:29 Discharged to home ambulatory. [facility] 13:29 Condition: improved 13:29 Discharge instructions given to patient, family, Instructed on discharge instructions, Demonstrated understanding of instructions, medications, Prescriptions given X 3. 13:31 Patient left the ED. [facility] Signatures: Dispatcher [employer] EDMS David Rosales MD MD rn Herrera, Deanna 3 Sky Bermeo RN RN 1 Daniella Stevens RN RN 6 Damaris Perry RN RN Raúl Mueller RN RN ke1 Corrections: (The following items were deleted from the chart) 08:53 08:52 PMHx: Kidney stones; ke1 ke1 08:53 08:52 PMHx: depressive disorder; ke1 ke1 08:57 08:54 General: Appears uncomfortable, Behavior is cooperative, ke1 ke1
--- NOTE | 2021-08-15 13:15 | EDPHYS ---
Physician Documentation [facility] Name: Caitlin Guzman Age: 26 yrs Sex: Female : 1995 Arrival Date: 08/15/2021 Time: 08:40 Bed 15 Private MD: ED Physician David Rosales HPI: 08/15 08:44 This 26 yrs old Female presents to ER via Unassigned with complaints of rn nausea/vomiting/diarrhea. 08:44 The patient presents to the emergency department with nausea, vomiting, diarrhea, rn abdominal pain, of the epigastric area. Onset: The symptoms/episode began/occurred this morning. Possible causes: unknown. The symptoms are aggravated by nothing. The symptoms are alleviated by nothing. Associated signs and symptoms: Pertinent positives: abdominal pain, diarrhea, nausea, vomiting, Pertinent negatives: fever, GI bleeding. Severity of symptoms: At their worst the symptoms were moderate in the emergency department the symptoms have improved. The patient has not experienced similar symptoms in the past. The patient has been recently seen at the [facility] Emergency Department. Pt reports began with nausea/vomiting/diarrhea this morning, recently seen here for URI, prescribed cefdinir, states cough and congestion got better, but now throwing up several times. No blood in stool. Reports no medication allergies. No changes in medication. NO trauma. No fever. Reports "kidneys hurt". Historical: - Allergies: 08:52 No Known Allergies; ke1 - PSHx: 08:53 kidney stone removal; ke1 - Immunization history:: Client reports receiving the 2nd dose of the Covid vaccine. - Social history:: Smoking status: Patient denies any tobacco usage or history of. - Family history:: not pertinent. - Hospitalizations: : No recent hospitalization is reported. ROS: 08:44 Constitutional: Negative for fever, chills, and weight loss, Eyes: Negative for injury, rn pain, redness, and discharge, ENT: Negative for injury, pain, and discharge, Neck: Negative for injury, pain, and swelling, Cardiovascular: Negative for chest pain, palpitations, and edema, Respiratory: Negative for shortness of breath, cough, wheezing, and pleuritic chest pain, Abdomen/GI: + upper abd pain and nausea/vomiting/diarrhea Back: Negative for injury and pain, : Negative for injury, bleeding, discharge, and swelling, MS/Extremity: Negative for injury and deformity, Skin: Negative for injury, rash, and discoloration, Neuro: + generalized weakness Exam: 08:44 Constitutional: This is a well developed, well nourished patient who is awake, alert, rn holding emesis bag, does not appear to feel well Head/Face: Normocephalic, atraumatic. Eyes: Periorbital areas with no swelling, redness, or edema. ENT: dry MM Neck: Trachea midline, no thyromegaly or masses palpated, and no cervical lymphadenopathy. Supple, full range of motion without nuchal rigidity, or vertebral point tenderness. No Meningismus. Cardiovascular: Tachycardic, regular. No pulse deficits. Respiratory: No increased work of breathing, no retractions or nasal flaring. Abdomen/GI: soft, + epigastric tenderness, no rebound, no peritoneal signs Skin: Warm, dry MS/ Extremity: Pulses equal, no cyanosis. Neuro: Awake and alert, GCS 15 Vital Signs: 08:45 BP 115 / 68; Pulse 98; Resp 20; ke1 10:00 BP 127 / 76; Pulse 84; Resp 16; Pulse Ox 99% ; Pain 3/10; jh6 11:42 BP 109 / 56; Pulse 76; Resp 17; Pulse Ox 100% ; Pain 3/10; jh6 MDM: 08:40 Patient medically screened. rn 09:30 ED course: Pt given zofran and phenergan by EMS prior to arrival. Currently complaining rn more of diarrhea. . 11:00 ED course: Pt feeling better, asking for water.. rn 13:12 Differential diagnosis: Nonspecific abd pain, gastritis, cholecystitis, pancreatitis, rn appendicitis, diverticulitis, viral gastroenteritis, gastroenteritis. Data reviewed: vital signs, nurses notes, lab test result(s), radiologic studies, CT scan, and as a result, I will discharge patient. Counseling: I had a detailed discussion with the patient and/or guardian regarding: the historical points, exam findings, and any diagnostic results supporting the discharge/admit diagnosis, lab results, radiology results, the need for outpatient follow up, to return to the emergency department if symptoms worsen or persist or if there are any questions or concerns that arise at home. Response to treatment: the patient's symptoms have markedly improved after treatment, and as a result, I will discharge patient. Special discussion: Based on the patient's Hx, exam, and Dx evaluation, there is no indication for emergent surgery or inpatient Tx. It is understood by the patient/guardian that if the Sx's persist or worsen they need to return immediately for re-evaluation. I discussed with the patient/guardian in detail that at this point there is no indication for admission to the hospital. It is understood, however, that if the symptoms persist or worsen the patient needs to return immediately for re-evaluation. 08/15 08:42 Order name: Basic Metabolic Panel rn 08/15 08:42 Order name: CBC with Diff; Complete Time: 11:29 08/15 08:42 Order name: Hepatic Function 08/15 08:42 Order name: Lipase 08/15 08:42 Order name: COVID-19/FLU A+B (Document "Date of Onset" if Symptomatic); Complete Time: rn 11:08/15 08:43 Order name: Urine Microscopic Only; Complete Time: 11: 08/15 08:42 Order name: CT Abd/Pelvis - IV Contrast Only; Complete Time: 11:29 08/15 09:53 Order name: Basic Metabolic Panel; Complete Time: 10:14 EDTN 08/15 09:53 Order name: Liver (Hepatic) Function; Complete Time: 10:14 [facility] 08/15 09:53 Order name: Lipase; Complete Time: 10:14 [facility] 08/15 10:15 Order name: Manual Differential; Complete Time: 11:29 [facility] 08/15 10:39 Order name: Urine Dipstick-Ancillary; Complete Time: 10:49 [facility] 08/15 10:41 Order name: Urine --Ancillary (enter results); Complete Time: 12:27 em1 08/15 08:42 Order name: IV Saline Lock; Complete Time: 08:45 rn 08/15 08:42 Order name: Labs collected and sent; Complete Time: 08:45 08/15 08:43 Order name: Urine Dipstick-Ancillary (obtain specimen); Complete Time: 10:40 08/15 08:43 Order name: Urine Test (obtain specimen); Complete Time: 10:40 rn Administered Medications: 10:04 Drug: NS 0.9% 1000 ml Route: IV; Rate: 1000 ml; Site: right antecubital; 6 11:01 Follow up: IV Status: Completed infusion 6 10:05 Drug: LoMOTIL (diphenoxylate-atropine) 2 tabs Route: PO; 6 11:01 Follow up: Response: No adverse reaction 6 11:42 Drug: Bentyl (dicyclomine) 20 mg Route: IM; Site: left gluteus; jh6 12:34 Follow up: Response: No adverse reaction 6 12:33 Drug: NS 0.9% 500 ml Route: IV; Rate: bolus; Site: right antecubital; [facility] Disposition Summary: 08/15/21 13:14 Discharge Ordered Location: Home rn Problem: new rn Symptoms: have improved rn Condition: Stable rn Diagnosis - Infectious gastroenteritis and colitis, unspecified rn Followup: rn - With: Private Physician - When: As needed - Reason: Recheck today's complaints, Re-evaluation by your physician Discharge Instructions: - Discharge Summary Sheet rn - Diarrhea, Adult rn - Nausea and Vomiting, Adult rn Forms: - Medication Reconciliation Form rn - Thank You Letter rn - Antibiotic director of government sales - Prescription Opioid Use rn Prescriptions: - ondansetron 4 mg Oral tablet,disintegrating - take 1 tablet by ORAL route every 8 hours As needed; 15 tablet; Refills: 0, rn Product Selection Permitted - Flagyl 500 mg Oral Tablet - take 1 tablet by ORAL route every 8 hours for 10 days; 30 tablet; Refills: 0, rn Product Selection Permitted - Cipro 500 mg Oral Tablet - take 1 tablet by ORAL route every 12 hours for 10 days; 20 tablet; Refills: 0, rn Product Selection Permitted Signatures: Dispatcher [employer] EDDavid Hatch MD MD rn Hastedt, Jennifer RN RN jh6 Raúl Mueller RN RN ke1 Corrections: (The following items were deleted from the chart) 08:53 08:52 PMHx: Kidney stones; ke1 ke1 08:53 08:52 PMHx: depressive disorder; ke1 ke1
[2021-08-15 13:38] VITALS: BP 109/56; O2SAT 100
== END 2021-08-15 13:31 | disposition home or self-care (01) ==
LOC: ER 08:37
DX: A09 Infectious gastroenteritis and colitis, unspecified (principal); Z23 Encounter for immunization
CPT/HCPCS: 85025; 80048; 36415; 81025; 80076; 83690; 0240U; 74177; 96360; 96372; 99285; J0500; J7040; J7030; 81003; 81015